=== PATIENT | female | born 1950 | race Asian ===

== ENCOUNTER 2025-05-16 10:53 | Emergency (ER) | payer OTHER ==
[~2025-05-16] VITALS: Ht 160 cm; Wt 56.2 kg
[2025-05-16 10:55] VITALS: BP 136/72
[2025-05-16] MEDS ORDERED: NAPR-1009 PO (12:36)
[2025-05-16 12:44] VITALS: BP 136/72; TEMP 97.6; O2SAT 96
== END 2025-05-16 12:45 | disposition home or self-care (01) ==
LOC: ER 10:53
DX: S16.1XXA Strain of muscle, fascia and tendon at neck level, initial encounter (principal); S40.011A Contusion of right shoulder, initial encounter; E11.9 Type 2 diabetes mellitus without complications; E78.5 Hyperlipidemia, unspecified; I10 Essential (primary) hypertension; V43.62XA Car passenger injured in collision with other type car in traffic accident, initial encounter; Y93.89 Activity, other specified; Y92.488 Other paved roadways as the place of occurrence of the external cause; Y99.8 Other external cause status
CPT/HCPCS: 72125; 73030; A4606; A4663